=== PATIENT | male | born 1995 | race Two or more races ===

== ENCOUNTER 2016-11-02 23:00 | Emergency (ER) | payer OTHER ==
--- NOTE | 2016-11-03 08:18 | RAD ---
History: Left-sided chest pain. Comparison: None. Technique: 2 views Findings: The soft tissue and bony structures are unremarkable. The heart size is appropriate. No infiltrate, effusion or pneumothorax is observed. The hilar and mediastinal structures are normal. Impression: 1. A negative 2 view chest
== END 2016-11-03 01:49 | disposition home or self-care (01) ==
LOC: ED 23:00
DX: R07.9 Chest pain, unspecified (principal); R30.0 Dysuria; R11.10 Vomiting, unspecified